=== PATIENT | female | born 1995 | race Caucasian/White ===

== ENCOUNTER 2023-11-03 06:07 | Day surgery (SDC) | payer OTHER, SELFPAY ==
[2023-10-26 07:16] VITALS: BMI 31.7
[2023-10-26 09:51] LABS: % Basophils 0.5 % (0-2); % Eosinophils 4.2 % (0-6); % Immature Granulocytes 0.3 % (0-0.5); % Lymphocytes 47.1 % (20.5-51.1); % Monocytes 5.7 % (1.7-9.3); % Neutrophils 42.2 % (42.2-75.2); Absolute Eosinophils 0.3 10^3/uL (0-0.7); Absolute Lymphocytes 2.8 10^3/uL (1.2-3.4); Absolute Monocytes 0.3 10^3/uL (0.1-0.6); Absolute Neutrophils 2.5 10^3/uL (1.4-6.5); Hematocrit 40.2 % (37.0-47.0); Hemoglobin 13.8 g/dL (12.0-16.0); Mean Corp Hgb Conc. 34.3 g/dL (33.0-37.0); Mean Corpuscular Hgb 29.1 pg (27.0-31.0); Mean Corpuscular Volume 84.6 fL (81.0-99.0); Mean Platelet Volume 10.7 fL (7.4-10.4); Nucleated Red Blood Cells % 0 %; Platelet Count 409 10^3/uL (130-400); Red Blood Cell Count 4.75 10^6/uL (4.20-5.40); Red Cell Dist. Width 12.3 % (11.5-14.5); White Blood Cell Count 5.9 10^3/uL (4.8-10.8)
[2023-10-26 10:25] LABS: ALT (SGPT) 19 U/L (0-35); AST (SGOT) 24 U/L (14-36); Albumin 4.9 g/dl (3.5-5.0); Alkaline Phosphatase 101 U/L (38-126); Blood Urea Nitrogen 15 mg/dl (7-17); Calcium 9.7 mg/dl (8.4-10.2); Carbon Dioxide 23 mmol/L (22-30); Chloride 105 mmol/L (98-107); Estimated Creatinine Clearance 121 ml/min; Glucose 87 mg/dl (70-99); Potassium 4.7 mmol/L (3.5-5.1); Sodium 140 mmol/L (135-145); Total Bilirubin 0.4 mg/dl (0.2-1.3); Total Protein 7.4 g/dl (6.3-8.2); eGFR > 60.00
--- NOTE | 2023-10-26 15:05 | PTCARENOTE ---
patients 10/25 EKG abnormal- reviewed by Dr. Enriquez, no additional interventions required
[2023-11-03] VITALS (10 sets, daily range): BP systolic 114–163; BP diastolic 71–95; BMI 31.7
[2023-11-03] MEDS: TYLENOL 1000 MG PO (07:08)
[2023-11-03] MEDS: NORMOSOL-R 1000 IV (07:08)
--- NOTE | 2023-11-03 08:01 | W.SUR.PREOP ---
Pre-Operative Surgical Note
-
I have examined this patient prior to the performance of the scheduled procedure.
The patient's condition is unchanged from the time of the current History and
Physical and the patient is able to undergo the scheduled procedure.
--- NOTE | 2023-11-03 08:01 | W.IMMPOSTOP ---
Surgical Immed Post Op Note
-
Primary Surgeon: DELLA Webb MD
Assisting Surgeon:
Pre-op Diagnosis: macromastia
Post-op Diagnosis: same
Procedure Performed: bilateral breast reduction
Anesthesia Type: TIVA
Specimen / Cultures: right left breast tissue
Estimated Blood Loss: 30 cc
Complications: none
Operative Findings: as expected
--- NOTE | 2023-11-03 08:01 | OR.RPT ---
Operative Report
Operative Report
Date of surgery: 11/03/2023
Surgeon: DELLA Webb MD
Preoperative diagnosis: Macromastia, cervicalgia, intertrigo
Postoperative diagnosis: Same
procedure: Bilateral breast reduction
Estimated blood loss: 30 cc
Specimens: Right and left breast tissue
Complications: None
Anesthesia: Total IV
Indications for procedure: Patient is a 28-year-old female with a history of large pendulous breast. She suffered from upper neck and back pain, well-fitting bras, skin breakdown secondary to moisture and ill fitting garments. She presented for
consideration of bilateral breast reduction. Prior authorization was obtained. Risks were reviewed including compromise to the bilateral nipple areolar complexes, hematoma, seroma, delayed wound healing, asymmetry, infection. She understood these
risk desired to proceed. plan was made with anesthesia given family history of potentially malignant hyperthermia to do total IV anesthesia.
Procedure in detail: Patient was identified preoperatively and the surgical site was confirmed to be the bilateral breast. Bilateral superior medial pedicles were drawn out and a Pugh pattern skin excision. The nipple position was identified by
transposing the inframammary fold. All questions were answered and consents were confirmed. Patient was taken back to the operating room placed supine on the table. Anesthesia was induced and the patient was prepped and draped in the usual
sterile fashion. A timeout for patient safety was performed was confirmed that bilateral SCDs were in place and preoperative antibiotics have been administered. Procedure began with the injection of local using dilute 1% lidocaine with epinephrine
in the bilateral breast. Meter ID8-Mobile cutter was used to alan out the noon areolar complex bilaterally. The incisions were then made with a 15 blade and the right breast was placed under tourniquet. The pedicle was de-epithelialized with a 10
blade. Bovie electrocautery was then used to dissect the pedicle down the chest wall. The inferior and lateral breast specimen was then removed and weighed. A total of approximately 600g of tissue was removed on the right. Hemostasis was
ensured and intercostal pectoralis blocks were performed with dilute Marcaine. The right breast was tentatively closed and attention was drawn to the left breast where the exact same procedure was performed. 42 mm cookie cutter alan the new
areola. The markings were incised with a 15 blade and the pedicle was de-epithelialized under tourniquet. The tourniquet was released and the pedicle was dissected with via Bovie electrocautery down the chest wall. The inferior and lateral breast
specimens were then removed and weighed. Approximately 610 g were taken out of the left breast. The wound was tentatively closed after ensuring meticulous hemostasis and performing the pectoralis and intercostal blocks. Patient was then evaluated
was determined that adequate symmetry had been achieved. The wounds were closed with a series of 2-0 Vicryl followed by 3-0 and 4-0 Monocryl. INSORB stapler was used along the inframammary fold. At the time and nipple inset the bilateral nipples
were well-perfused in appearance. The wounds were dressed with bacitracin dry gauze and Tegaderm. Patient tolerated the procedure well, was performed without complication, all counts were correct at the end the case. Patient was extubated taken
the PACU for further care.
== END 2023-11-03 14:23 | disposition home or self-care (01) ==
LOC: SDS 06:07
PROVIDERS: ATTENDING PHYSICIAN Surgery Plastic and Reconstructive Surgery; FAMILY PHYSICIAN Nurse Practitioner Family
DX: N62 Hypertrophy of breast (principal); D24.2 Benign neoplasm of left breast; L30.4 Erythema intertrigo; M54.2 Cervicalgia
CPT/HCPCS: 19318; 88305; 36415; 80053; 85025; 93005